=== PATIENT | female | born 1980 | race Caucasian/White ===

== ENCOUNTER 2017-02-11 23:59 | Inpatient (IN) | payer OTHER ==
[~2017-02-11] VITALS: Ht 170.2 cm; Wt 80.7 kg
[~2017-02-11 23:59] MED LIST: CALC667T5 PO; DOCO100C PO; NITR50CA4 PO; PREN1TAB73 PO
[2017-02-15] MEDS ORDERED: Misoprostol 25 mCg/0.25 Tablet VAGINAL ONE (10:30)
[2017-02-15] MEDS ORDERED: Hemorrhage Kit, Post Partum XX ONE ×2 (10:35→19:50)
[2017-02-15] MEDS ORDERED: Lactated Ringer's 1,000 ML IV PRN (10:35)
[2017-02-15] MEDS ORDERED: Oxytocin 10 Unit/mL Inj IM PRN ×2 (10:35→19:50)
[2017-02-15] MEDS ORDERED: Carboprost 250 mCg/mL Inj IM PRN ×2 (10:35→19:50)
[2017-02-15] MEDS ORDERED: Methylergonovine 0.2 mg/mL Inj IM PRN ×2 (10:35→19:50)
[2017-02-15] MEDS ORDERED: Sodium Chloride LOK Flush 10 mL Syringe IVFLUSH PRN (10:35)
[2017-02-15 10:45] LABS: Mean Corpuscular Hemoglobin 31.8 pg (27.0-35.0); Mean Corpuscular Volume 90.5 fL (81-100)
[2017-02-15] MEDS ORDERED: Oxytocin 30 Units/500 mL LR 30 UNITS in IV Premix 1 EACH IV PRN ×2 (15:45→19:50)
[2017-02-15] MEDS ORDERED: Lactated Ringer's 1,000 ML IV SCH (19:46)
[2017-02-15] MEDS ORDERED: Influenza (Adult) Vaccine 0.5 mL Syringe IM ONE (19:50)
[2017-02-15] MEDS ORDERED: TdaP Vaccine 0.5 mL Inj IM ONE (19:50)
[2017-02-15] MEDS ORDERED: Witch Hazel-Glycerin Pads TOPICAL PRN (19:50)
[2017-02-15] MEDS ORDERED: HYDROcodone-APAP 5-325 mg Tablet PO PRN (19:50)
[2017-02-15] MEDS ORDERED: Measles-Mumps-Rubella Vaccine 0.5 mL Inj SUBQ ONE (19:50)
[2017-02-15] MEDS ORDERED: Benzocaine (Dermoplast) 20% 60 Gm Spray TOPICAL PRN (19:50)
[2017-02-15] MEDS ORDERED: LANOlin HPA 7 Gm Ointment TOPICAL PRN (19:50)
--- NOTE | 2017-02-15 22:07 | PROG NOTE ---
[address] [address] PROGRESS NOTE PATIENT: SUITER, SACHI Whitney : 1980 MR#: [id number] ADMIT: 02/15/2017 JOB ID: [id number] DATE: 02/15/2017 [facility] NOTE: The patient was admitted to [facility] this morning at term with history of macrosomia and mild shoulder dystocia. We had negotiated admission for labor induction at term rather than allowing further over the next 1-2 weeks in an effort to have a little bit smaller baby in hopes of avoiding any recurrent and potentially more significant shoulder dystocia than experienced in the past. Fortunately, this fetus has appeared to be smaller sonographically than last child at . Cytotec 25 mcg was initially provided followed by artificial rupture of membranes with return of clear fluid. Intrauterine pressure catheter was placed and uterine contractions became more frequent and more intense. Ultimately, Pitocin augmentation was also provided and labor did kick in. Cervical dilatation then began to progress. heart tracing was okay. Epidural was not requested. Ultimately, complete cervical dilatation was achieved and head descended well even without pushing. Then, with brief 2nd stage, occurred and head then delivered, followed directly by the shoulders, body, extremities, thus no shoulder dystocia. Baby was active and crying and vigorous. The baby was handed to mother for bonding. After a minute, umbilical cord was clamped and cut and cord blood was obtained for routine studies. Placenta with membranes was then spontaneously expelled, intact. Blood loss was in the 250 cc range. Uterus contracted well with massage plus intravenous Pitocin infusion. Betadine solution was used to cleanse the vulvovaginal region and only laceration noted was quite small second-degree midline perineal laceration. This laceration was easily repaired with 3-0 chromic suture, with complete hemostasis achieved, and no hematoma formation. The instrument, needle and sponge counts were all found to be correct. Procedures were complete. It certainly is anticipated that mother and baby will do very well during the timeframe.
[2017-02-16 06:35] LABS: Mean Corpuscular Hemoglobin 31.9 pg (27.0-35.0); Mean Corpuscular Volume 91.9 fL (81-100)
--- NOTE | 2017-02-16 10:54 | PCM.DIOB ---
Obstetrical Disch Instruction Dates of Hospitalization Date of Hospital Admission Feb 15, 2017 at 08:46 Providers Admitting Physician: Jame Brown MD Primary Care Physician: aJme Brown MD Attending Physician: Jame Brown MD Discharge Diagnosis Problems: (1) Status: Acute ICD Code: Z33.1 Diet Discharge Diet: No restrictions Activity Discharge Activity-General: Pelvic Rest for 6 weeks Dressing and Incisional Care Hygiene: May shower, Perineal care, Sitz bath, Dermoplast spray, Witch Jade pads, Ice Follow Up Plan Follow-up appointment: Weeks (Follow up in 6 weeks for checkup.) Call your provider for: Fever or Chills, Shortness of breath, Heavy vaginal bleeding, Red painful breasts Jame Brown MD Feb 16, 2017 10:54
[2017-02-16] MEDS ORDERED: IBUP800T28 PO (10:55)
[2017-02-16 15:11] VITALS: BP 107/64; PULSE 69; RESP 16
--- NOTE | 2017-02-17 21:06 | DIS ---
[address] [address] DISCHARGE SUMMARY PATIENT: SACHI DUNNE : 1980 MR#: [id number] ADMIT: 02/15/2017 JOB ID: [id number] DIS: 02/16/2017 DISCHARGE DIAGNOSES: Term , delivered. PROCEDURES PERFORMED: 1. Vaginal delivery. 2. Perineal repair. HOSPITAL COURSE: The patient was admitted to [facility] on February 15, 2017, for labor induction in the setting of prior macrosomia and mild shoulder dystocia in hopes of having a smaller baby and avoiding shoulder dystocia this time. Delivery went well. There was no shoulder dystocia. During the timeframe, the patient did well, with stable vitals, afebrile, with reasonable bleeding and pain management, ambulating, voiding, without leg pain or shortness of breath, and handling baby well. hemoglobin was acceptable. The patient was interested in discharge to home on the first day, and her request was granted, i.e. on February 16, 2017. DISCHARGE PROGRAM: The patient will call p.r.n., yet otherwise she will follow up at [facility] She will observe pelvic rest for six weeks. DISCHARGE MEDICATIONS: Ibuprofen 600 mg and all prescriptions written. She will also use vitamin daily while nursing.
--- NOTE | 2017-02-21 18:41 | PROG NOTE ---
[address] [address] PROGRESS NOTE PATIENT: SUITERSACHI : 1980 MR#: [id number] ADMIT: 02/15/2017 JOB ID: [id number] [facility] NOTE: DATE: 02/15/2017 at 0800 hours. Note that this initial [facility] note could not be located for some reason, thus I am dictating another one today. The patient is a 36-year-old, G3, P2, AB 0, woman followed prenatally at [facility], see record for details. She has reached 40 and 2/7 weeks gestation and has requested labor induction in the setting of prior 10 pound baby with mild shoulder dystocia, hoping, of course, to have a smaller baby and trying to avoid recurrent or progressive shoulder dystocia. She had been scheduled to come in on February 11, 2017, yet her induction was postponed by nursing staff, once again postponed on February 12, 2017, and then she was able to come in on February 15, 2017. Note that the fundal height has not been excessive and relatively recent ultrasound did not demonstrate a baby near as large as prior one, although only an estimate. Note that course has been relatively uncomplicated. Note advanced maternal age, with cell-free DNA negative and level two sonogram negative. Weight gain has only been about 33 pounds overall, although increased in the 1st 25 weeks of at close to 30 pounds. Note, rubella immune status, Rh positive status, negative GBS, and patient declined MSAFP and Tdap. In summary, then the patient is admitted on February 15, 2017 for labor induction at term in an effort to avoid an additional week for growth in light of prior significant macrosomia and some degree of shoulder dystocia. PHYSICAL EXAMINATION: On admission, last height, weight and blood pressure in the office 67 inches, 181 pounds, 120/70. Neck: No thyromegaly. Lungs: Clear to auscultation and percussion. Heart: Regular in rate and rhythm. Abdomen: Fundal height 39 cm. Positive heartbeat. Vertex presentation. Pelvic examination: See nursing notes regarding initial exam as well as serial exams throughout the induction/labor process. DIAGNOSTIC DATA: See admission lab work. IMPRESSION: 1. A 40 and 2/7 weeks . 2. Reproductive history-prior vaginal delivery x2, with last delivery at 41 weeks of gestation of 10 pound baby with mild shoulder dystocia experienced. Now, 3rd , at term, for labor induction, see above. 3. Advanced maternal age, note cell-free DNA negative and level two sonogram negative. 4. Rh positive, rubella immune, hepatitis B surface antigen negative, GBS negative. 5. Declined MSAFP or maternal serum alpha-fetoprotein. 6. Declined Tdap. 7. Urinary tract history; a. Kidney stones during a . b. Apparent hydronephrosis noted likely during the . c. Urinary tract infection history. 8. Surgical history-see reproductive history above, also right knee surgery and right shoulder surgery. 9. No known drug allergies. 10. Family history of twins (cousin has, other), breast cancer (maternal aunt, paternal grandmother), pancreatic cancer (grandfather), lung cancer (grandparents). PLAN: The patient has been admitted to [facility] on February 15, 2017 for labor induction at term, noting history of significant macrosomia with mild shoulder dystocia occurrence.
== END 2017-02-16 18:17 | disposition home or self-care (01) | DRG 775 ==
LOC: FBC 02-15 08:46
PROVIDERS: ADMIT Obstetrics & Gynecology; ATTEND Obstetrics & Gynecology
PROC: 10E0XZZ Delivery of Products of Conception, External Approach (ICD-10-PCS; principal; 2017-02-15)
PROC: 0KQM0ZZ Repair Perineum Muscle, Open Approach (ICD-10-PCS; 2017-02-15)
PROC: 3E0P7GC Introduction of Other Therapeutic Substance into Female Reproductive, Via Natural or Artificial Opening (ICD-10-PCS; 2017-02-15)
PROC: 10907ZC Drainage of Amniotic Fluid, Therapeutic from Products of Conception, Via Natural or Artificial Opening (ICD-10-PCS; 2017-02-15)
DX: O70.1 Second degree perineal laceration during delivery (principal); Z37.0 Single live birth; Z3A.40 40 weeks gestation of pregnancy